=== PATIENT | male | born 1980 | race Two or more races ===

== ENCOUNTER 2025-07-02 12:55 | Emergency (ER) | payer OTHER, SELFPAY ==
--- NOTE | 2025-07-02 16:23 | ED.GENMED ---
History of Present Illness
General
Chief Complaint: Back Pain
Time Seen by Provider: 07/02/25 16:09
History of Present Illness
History of Present Illness:
45-year-old male presents to the emergency department for evaluation of back pain for the past 5 days. He was seen 3 days ago at [facility] and prescribed ibuprofen without relief. He noted that a rash is gradually developed over the past
several days to the area affected. No fevers or chills.
Review of Systems
Review of Systems
Allergies reviewed?: Yes
All Other Systems: ROS reviewed and negative except as documented in HPI and ROS
Phy Exam
Physical Exam
Physical Exam:
GEN: Well appearing, NAD, WDWN
HEENT: Oral mucosa moist, no scleral icterus
Cardiac: Regular rate
Lung: No respiratory distress, no tachypnea
MSK: No gross deformity or injuries. Vesicular rash in a dermatomal pattern to the left lumbar back extending toward the umbilicus
Skin: Good color, no pallor or jaundice, no rashes
Neuro: AO x3, moves all extremities freely
Psych: Calm, cooperative
Course
Vital Signs
Initial and Last Documented VS:
Initial Vital Signs
Temp Pulse Resp Pulse Ox
98.0 F 100 16 98
07/02/25 13:16 07/02/25 13:16 07/02/25 13:16 07/02/25 13:16
Last Documented Vital Signs
Temp Pulse Resp Pulse Ox
98.0 F 100 16 98
07/02/25 13:16 07/02/25 13:16 07/02/25 13:16 07/02/25 16:24
MDM/Problems Addressed
MDM/Problems Addressed:
Exam consistent with acute herpes zoster. Although he is likely outside the reasonable treatment window for antivirals, given his severe pain we will treat with antivirals plus opiates and gabapentin. Discussed supportive care. Did require
professional septation with [place] for the entire evaluation
*Pulse Oximetry
SaO2: 98
Oxygen Mode of Delivery: Room air
Patient hypoxic: no
*Critical Care Note
Total Time (30-74mins, 75-104mins- exclusive of procedures): Not Applicable
ED Attending Note
-
Portions of this chart may have been created with voice recognition software.� Occasional wrong word or��sound alike� substitutions may have occurred due to the inherent limitations of voice recognition software.
Discharge Plan
Departure
Patient Disposition: Home (Routine Discharge)
Date of Disposition: 07/02/25
Time of Disposition: 16:23
Patient with high blood pressure during this ER visit?: No
Discharge Problem:
Herpes zoster
Instructions: Shingles
Prescriptions:
New
valacyclovir 1 gram tablet
1,000 mg PO TID 7 Days Qty: 21 0RF
gabapentin 300 mg capsule
300 mg PO TID Qty: 60 0RF
oxycodone 5 mg tablet
5 mg PO Q8H PRN (Reason: Pain) Qty: 10 0RF
Interventions
Interventions:
*General Assessment Last Done: 07/02/25 13:16
*Neglect/Abuse Screening Last Done: 07/02/25 13:16
*ED COVID-19 Vaccine History Last Done: 07/02/25 13:16
*ED Influenza Vaccine History Last Done: 07/02/25 13:16
*Nursing Disposition Last Done: 07/02/25 16:49
ED-Musculoskeletal Assessment Last Done: 07/02/25 16:49
Discharge Date and Time
Discharge Date/Time: 07/02/25 16:51
Print Language: BENINESE
== END 2025-07-02 16:51 | disposition home or self-care (01) ==
LOC: EMR 12:55
PROVIDERS: EMERGENCY PHYSICIAN Emergency Medicine; FAMILY PHYSICIAN Family Medicine
DX: B02.9 Zoster without complications (principal)
CPT/HCPCS: 99282